=== PATIENT | male | born 1975 | race Two or more races ===

== ENCOUNTER → 2021-07-28 | Emergency (ER) | payer SELFPAY ==
[~2021-07-28] MED LIST: COLC0.6C3 PO; GUAI-671 PO; METO-357 PO; PRED15SO PO; ROSU10TA2 PO
== END | disposition left against medical advice (07) ==
LOC: EDUNIT# 12:05 → ER 12:13
DX: Z53.21 Procedure and treatment not carried out due to patient leaving prior to being seen by health care provider (principal)

== ENCOUNTER 2021-09-17 10:53 | Outpatient (CLI) | payer BC ==
[2021-09-17 11:47] LABS: BASOPHILS % (AUTO) 0.6 % (0.0-2.0); EOSINOPHILS % (AUTO) 3.8 % (0.0-6.0); HEMATOCRIT 44 % (39-51); HEMOGLOBIN 14.8 g/dL (13.5-17.5); LYMPHOCYTES # (AUTO) 3.6 K/uL (0.8-4.8); LYMPHOCYTES % (AUTO) 45.2 % (20.0-44.0); MEAN CORPUSCULAR HGB CONC 34 g/dl (31.0-36.0); MEAN CORPUSCULAR VOLUME 85 fL (80-96); MONOCYTES # (AUTO) 0.6 K/uL (0.1-1.30); MONOCYTES % (AUTO) 7.7 % (2.0-12.0); NEUTROPHILS # (AUTO) 3.4 K/uL (1.8-8.9); NEUTROPHILS % (AUTO) 42.7 % (43.0-81.0); PLATELET COUNT (AUTO) 234 K/uL (150-450); RED BLOOD CELL COUNT(AUTO) 5.15 MIL/uL (4.5-6.0)
[2021-09-17 20:17] LABS: CALCIUM, SERUM 9.5 mg/dL (8.5-10.1); CARBON DIOXIDE 26 mmol/L (21-32); CHLORIDE 103 mmol/L (98-107); GLUCOSE 99 mg/dL (74-106); POTASSIUM 4.2 mmol/L (3.5-5.1); SODIUM SERUM 136 mmol/L (136-145); UREA NITROGEN, BLOOD 14 mg/dL (7-18)
[2021-09-18 10:52] LABS: CHOLESTEROL 157 mg/dL (<200); HDL CHOLESTEROL 43 mg/dL (40-60); LDL 85 mg/dL (0-99); TRIGLYCERIDES 187 mg/dL (30-150)
[2021-09-18 20:40] LABS: ALANINE AMINOTRANSFERASE 42 U/L (12-78); ALBUMIN 4.4 g/dL (3.4-5.0); ALKALINE PHOSPHATASE 63 U/L (46-116); ASPARTATE AMINOTRANSFERASE 34 U/L (15-37); BILIRUBIN,TOTAL 0.3 mg/dL (0.2-1.0); TOTAL PROTEIN, SERUM 7.8 g/dL (6.4-8.2)
== END 2021-09-17 23:59 | disposition home or self-care (01) ==
LOC: LAB 10:53
PROVIDERS: ATTEND Nurse Practitioner Acute Care
DX: Z00.00 Encounter for general adult medical examination without abnormal findings (principal)
CPT/HCPCS: 36415; 80053-TC; 80061-TC; 84484-TC; 85025-TC

== ENCOUNTER 2021-12-19 14:30 | Outpatient (CLI) | payer BC ==
[2021-12-19] MEDS ORDERED: ETHYL CHLORIDE SPRAY 1 EA BOTTLE TP ONE (15:00)
[2021-12-19] MEDS ORDERED: LIDOCAINE 2% 20 ML MDV IJ ONE (15:00)
[2021-12-19] MEDS ORDERED: DEXAMETHASONE SOD PHOSPHATE 4 MG/ML VIAL IJ ONE (15:00)
== END 2021-12-19 23:59 | disposition home or self-care (01) ==
LOC: WOU 14:30
PROVIDERS: ATTEND Podiatrist Foot & Ankle Surgery
DX: M10.072 Idiopathic gout, left ankle and foot (principal); R60.0 Localized edema; M79.672 Pain in left foot
CPT/HCPCS: 20610; J1100; J3490

== ENCOUNTER 2022-01-30 15:30 | Outpatient (CLI) | payer BC | END 2022-01-30 23:59 | disposition home or self-care (01) | LOC: WOU 15:30 | PROVIDERS: ATTEND Podiatrist Foot & Ankle Surgery | DX: M10.072 Idiopathic gout, left ankle and foot (principal); M72.2 Plantar fascial fibromatosis; G57.71 Causalgia of right lower limb; R60.0 Localized edema; M79.672 Pain in left foot; M79.671 Pain in right foot | CPT/HCPCS: G0463 ==